=== PATIENT | male | born 1955 | race Caucasian/White ===

== ENCOUNTER 2022-07-14 10:28 | Day surgery (SDC) | payer MEDICAID ==
[2022-07-09 16:36] LABS: CLARITY,URINE CLEAR (Clear); COLOR,URINE YELLOW (Yellow); GLUCOSE, URINE NEGATIVE (Neg); KETONES,URINE 15 mg/dl (Neg); LEUKOCYTE ESTERASE ,URINE NEGATIVE (Neg); NITRITES, URINE NEGATIVE (Neg); OCCULT BLOOD,URINE NEGATIVE (Neg); PROTEIN,URINE NEGATIVE (Neg); UROBILINOGEN,URINE 0.2 E.U/dL (0.2-1.0)
[2022-07-09 16:39] LABS: UA COLLECTION TYPE CLN CATCH MIDSTREAM
[2022-07-09 16:43] LABS: BASOPHILS # (AUTO) 0.1 X10'3 (0-0.2); BASOPHILS % (AUTO) 0.6 % (0-1); EOSINOPHILS # (AUTO) 0.6 X10'3 (0-0.9); EOSINOPHILS % (AUTO) 4.3 % (0-6); LYMPHOCYTES # (AUTO) 1.7 X10'3 (1.1-4.8); LYMPHOCYTES % (AUTO) 12.6 % (21-51); MEAN CORPUSCULAR HEMOGLOBIN 27.9 PG (27.0-31.0); MEAN CORPUSCULAR HGB CONC 32.6 g/dL (33.0-36.5); MEAN CORPUSCULAR VOLUME 85.6 FL (78-98); MEAN PLATELET VOLUME 7.5 FL (7.4-10.4); MONOCYTES # (AUTO) 1.5 X10'3 (0-0.9); MONOCYTES % (AUTO) 11.5 % (2-12); NEUTROPHILS # (AUTO) 9.5 X10'3 (1.8-7.7); PRE OP HEMATOCRIT 39.5 % (42.0-52.0); PRE OP HEMOGLOBIN 12.9 g/dL (14.0-17.9); PRE OP PLATELET COUNT 581 X10'3 (140-440); RED BLOOD COUNT 4.62 X10'6 (4.70-6.10); RED CELL DISTRIBUTION WIDTH 17.6 % (11.5-14.5)
[2022-07-09 16:57] LABS: ALBUMIN 3.2 G/DL (3.4-5.0); ALBUMIN/GLOBULIN RATIO 0.7 (1.1-1.5); ALKALINE PHOSPHATASE 83 IU/L (46-116); BLOOD UREA NITROGEN 10 MG/DL (7-18); BUN/CREATININE RATIO 15.6 (5.4-32.0); CALCIUM 8.8 MG/DL (8.5-10.1); CHLORIDE 94 MMOL/L (99-107); CREATININE 0.64 MG/DL (0.60-1.10); PRE OP ALT 14 U/L (30-65); PRE OP ANION GAP 7 (8-16); PRE OP AST 17 U/L (10-37); PRE OP BILIRUB, TOTAL 0.3 MG/DL (0.0-1.0); PRE OP GLUCOSE 86 MG/DL (70-104); PRE OP POTASSIUM 3.7 MMOL/L (3.4-5.1); TOTAL CARBON DIOXIDE 26.9 MMOL/L (24-32); eGFR > 90 ML/MIN
[2022-07-09 17:02] LABS: PRE OP SODIUM 128 MMOL/L (135-145)
[2022-07-14] VITALS (21 sets, daily range): BP systolic 104–140; BP diastolic 55–100
[~2022-07-14] VITALS: Ht 170.2 cm; Wt 67.4 kg
[~2022-07-14 10:28] MED LIST: AMOX-318 PO; COLLAGEN PO; GABA-530 PO; MEAL REPLACEMENT PO; MIDO5TAB4 PO; MULT-1085 PO; PROT480P PO; [UNRECOGNIZED DRUG - OTHER] PO; [UNRECOGNIZED DRUG - OTHER] PO; ceFAZolin inj. 2,000 MG in dextrose 5%-water 100 ML IV ONE; famotidine 20mg tablet PO ONE; ringers solution, lacted 1,000 ML IV SCH
[2022-07-14] MEDS ORDERED: labetalol 20mg/4ml (5mg/ml) syringe IV PRN (11:25)
[2022-07-14] MEDS ORDERED: morphine 2 MG/ML inj. syringe IV PRN (11:25)
[2022-07-14] MEDS ORDERED: hydrALAZINE 20mg/ml inj. IV PRN (11:25)
[2022-07-14] MEDS ORDERED: morphine 4 MG/ML inj SYRINge IV PRN (11:25)
[2022-07-14] MEDS ORDERED: acetaminophen 1,000mg/100ml IV 100 ML IV PRN (11:25)
[2022-07-14] MEDS ORDERED: ringers solution, lacted 1,000 ML IV SCH (11:25)
[2022-07-14] MEDS ORDERED: meperidine/PF 25mg/ml syringe IV PRN ×3 (11:25)
[2022-07-14] MEDS ORDERED: proCHLORperazine 10 MG/2 ml inj IV PRN (11:25)
[2022-07-14] MEDS ORDERED: ondansetron/PF 4mg/2ml inj IV PRN (11:25)
[2022-07-14 11:49] LABS: PRE OP PROTIME 10.7 SECONDS (9.0-12.0)
[2022-07-14] MEDS ORDERED: BUPIVAcaine 0.5% inj/PF 30 ML ONE (13:46)
[2022-07-14] MEDS ORDERED: neostigmine methylsulfate 1 MG/ML 10ml vial ONE (14:01)
[2022-07-14] MEDS ORDERED: sevoflurane 250ml liquid IH ONE (14:01)
[2022-07-14] MEDS ORDERED: midazolam 1 mg/ML 2ml injection ONE (14:04)
[2022-07-14] MEDS ORDERED: fentaNYL /PF 50mcg/ml 5ml ampule ONE (14:04)
[2022-07-14] MEDS ORDERED: BUPIVAcaine 0.5% inj/PF 30 ml vial IJ ONE (14:51)
[2022-07-14] MEDS ORDERED: LIDOcaine 2% (20mg/ml) 5ml vial ONE (15:14)
[2022-07-14] MEDS ORDERED: dexamethasone sod phosphate 4mg/ml inj. ONE (15:14)
[2022-07-14] MEDS ORDERED: propofol inj 20 ML IV ONE (15:14)
[2022-07-14] MEDS ORDERED: rocuronium 10mg/ml inj IV ONE (15:14)
[2022-07-14] MEDS ORDERED: glycopyrrolate 0.2mg/ml inj ONE (15:14)
[2022-07-14] MEDS ORDERED: ondansetron/PF 4mg/2ml inj ONE (15:23)
--- NOTE | 2022-07-14 15:29 | NUR ---
Received from OR via [facility], accompanied by Anesthesiologist and report given by Anesthesiologist. PATIENT WAKING UP, DENIES PAIN, V/S WNL, PIV 20G Right Forearm, DERMABONDED LAPS SITES CLOSED CDI TO ABDOMEN. Addendum: 07/14/22 at 1617 by Carl Walls RN Amended: Links added.
--- NOTE | 2022-07-14 18:00 | NUR ---
PERFORMED BLADDER SCANNER AND 233 CC OF URINE NOTED. Addendum: 07/14/22 at 1907 by Carl Walls RN Amended: Links added.
--- NOTE | 2022-07-14 19:49 | NUR ---
ALL DISCHARGE CRITERIA HAS BEEN MET. VSS, PAIN AT A TOLERABLE LEVEL, VOIDING AND ABLE TO SAFELY AMBULATE AND TRANSFER SELF. IV TAKEN OUT WITHOUT ANY COMPLICATIONS. ALL DISCHARGE INSTRUCTIONS COVERED WITH PATIENT AND ALL QUESTIONS ANSWERED. PATIENT TAKEN OUT VIA WHEELCHAIR WITH ALL BELONGINGS TO PERSONAL VEHICLE WHERE FAMILY DROVE PATIENT HOME. Addendum: 07/14/22 at 1951 by Carl Walls RN Amended: Links added.
== END 2022-07-14 19:49 | disposition home or self-care (01) ==
LOC: PAS 10:28
PROVIDERS: ATTEND Surgery
DX: K40.90 Unilateral inguinal hernia, without obstruction or gangrene, not specified as recurrent (principal); R59.0 Localized enlarged lymph nodes; D17.6 Benign lipomatous neoplasm of spermatic cord; I10 Essential (primary) hypertension; D64.9 Anemia, unspecified; G62.9 Polyneuropathy, unspecified; F10.27 Alcohol dependence with alcohol-induced persisting dementia; J44.9 Chronic obstructive pulmonary disease, unspecified; F17.210 Nicotine dependence, cigarettes, uncomplicated; Z79.899 Other long term (current) drug therapy; Z98.890 Other specified postprocedural states; Z82.3 Family history of stroke; Z82.49 Family history of ischemic heart disease and other diseases of the circulatory system; Z83.3 Family history of diabetes mellitus; Z82.61 Family history of arthritis
CPT/HCPCS: 36415; 38570; 49650; 80053; 81003; 82948; 84295; 85025; 85610; 93005; C1781; J0690; J1100; J2175; J2250; J2270; J2405; J2704; J2710; J3010; J3490; J7030; J7060; J7120; S0020; S2900; Z7506; Z7508; Z7512; A4215; A4618

== ENCOUNTER 2022-09-08 10:09 | Day surgery (SDC) | payer MEDICARE, MEDICAID ==
[~2022-09-08] VITALS: Ht 170.2 cm; Wt 65.9 kg
[~2022-09-08 10:09] MED LIST changes: -[UNRECOGNIZED DRUG - OTHER] PO; -ceFAZolin inj. 2,000 MG in dextrose 5%-water 100 ML IV ONE; -famotidine 20mg tablet PO ONE; -ringers solution, lacted 1,000 ML IV SCH
[2022-09-08] MEDS ORDERED: fentaNYL/PF 50MCG/1 ML 2ML syringe ONE (10:21)
[2022-09-08] MEDS ORDERED: MIDAZolam 1 MG/ML 5ML VIAL ONE (10:21)
[2022-09-08] MEDS ORDERED: LIDOcaine Viscous 15ml cup ONE (10:22)
[2022-09-08] MEDS ORDERED: ALBU6.7H14 INH (10:35)
[2022-09-08] MEDS ORDERED: FLUT12AE4 IH (10:36)
[2022-09-08] MEDS ORDERED: [UNRECOGNIZED DRUG - OTHER] INH (10:37)
[2022-09-08] MEDS ORDERED: HYDR-3965 PO (10:37)
[2022-09-08] MEDS ORDERED: POTA-206 PO (10:38)
[2022-09-08] MEDS ORDERED: DOCU-148 PO (10:38)
[2022-09-08] MEDS ORDERED: FOLI1TAB27 PO (10:39)
[2022-09-08 10:40] VITALS: BP 129/71
[2022-09-08 11:35] VITALS: BP 114/69
[2022-09-08 11:45] VITALS: BP 113/70
[2022-09-08 11:55] VITALS: BP 109/67
[2022-09-08 12:05] VITALS: BP 113/70
== END 2022-09-08 12:15 | disposition home or self-care (01) ==
LOC: GI LAB 10:09
PROVIDERS: ATTEND Internal Medicine Gastroenterology
DX: K92.1 Melena (principal); K30 Functional dyspepsia; K29.50 Unspecified chronic gastritis without bleeding; K29.80 Duodenitis without bleeding; K44.9 Diaphragmatic hernia without obstruction or gangrene; I95.9 Hypotension, unspecified; J44.9 Chronic obstructive pulmonary disease, unspecified; Z87.891 Personal history of nicotine dependence; Z79.899 Other long term (current) drug therapy
CPT/HCPCS: 43239; J2250; J3010; J7030; Z7512; 88305; 99152; A4620

== ENCOUNTER 2024-03-01 10:18 | Emergency (ER) | payer MEDICARE, MEDICAID ==
[~2024-03-01] VITALS: Ht 175.3 cm; Wt 68.2 kg
[~2024-03-01 10:18] MED LIST changes: +ALBU6.7H14 INH; -AMOX-318 PO; +DOCU-148 PO; +FLUT12AE4 IH; +FOLI1TAB27 PO; +HYDR-3965 PO; -MEAL REPLACEMENT PO; -MIDO5TAB4 PO; +POTA-206 PO; +[UNRECOGNIZED DRUG - OTHER] INH
[2024-03-01] MEDS: LORazepam 1 MG tablet PO ONE (11:35)
[2024-03-01 11:54] VITALS: TEMP 97.5
[2024-03-01 11:59] LABS: BASOPHILS # (AUTO) 0.1 X10'3 (0-0.2); EOSINOPHILS # (AUTO) 0.3 X10'3 (0-0.9)
[2024-03-01 12:01] LABS: BASOPHILS % (AUTO) 0.5 % (0-1); EOSINOPHILS % (AUTO) 1.6 % (0-6); HEMATOCRIT 43.6 % (42.0-52.0); HEMOGLOBIN 14.2 g/dl (14.0-17.9); LYMPHOCYTES # (AUTO) 0.9 X10'3 (1.1-4.8); LYMPHOCYTES % (AUTO) 5.4 % (21-51); MEAN CORPUSCULAR HEMOGLOBIN 35.2 PG (27.0-31.0); MEAN CORPUSCULAR HGB CONC 32.5 g/dL (33.0-36.5); MEAN CORPUSCULAR VOLUME 108.3 FL (78-98); MEAN PLATELET VOLUME 8.1 FL (7.4-10.4); MONOCYTES # (AUTO) 1.3 X10'3 (0-0.9); MONOCYTES % (AUTO) 7.7 % (2-12); NEUTROPHILS # (AUTO) 14.7 X10'3 (1.8-7.7); NEUTROPHILS % (AUTO) 84.8 % (42-75); PLATELET COUNT 362 X10'3 (140-440); RED BLOOD COUNT 4.02 X10'6 (4.70-6.10); RED CELL DISTRIBUTION WIDTH 13.6 % (11.5-14.5); WHITE BLOOD COUNT 17.4 X10'3 (4.5-11.0)
[2024-03-01 12:26] LABS: ALANINE AMINOTRANSFERASE 38 U/L (12-78); ALBUMIN 3.6 G/DL (3.4-5.0); ALBUMIN/GLOBULIN RATIO 0.8 (1.1-1.5); ALKALINE PHOSPHATASE 87 IU/L (46-116); ANION GAP 10 (8-16); ASPARTATE AMINO TRANSFERASE 33 U/L (10-37); BILIRUBIN,TOTAL 0.5 MG/DL (0.1-1.0); BLOOD UREA NITROGEN 11 MG/DL (7-18); CALCIUM 8.8 MG/DL (8.5-10.1); CHLORIDE 106 MMOL/L (99-107); GLUCOSE 85 MG/DL (70-104); POTASSIUM 3.8 MMOL/L (3.5-5.1); SODIUM 140 MMOL/L (135-145); TOTAL CARBON DIOXIDE 24.2 MMOL/L (24-32)
[2024-03-01 12:32] LABS: CREATININE 0.04 MG/DL (0.60-1.10); eCRCL 1752 ML/MIN; eGFR > 90 ML/MIN
[2024-03-01] MEDS: diazepam 5mg tablet PO ONE (13:41)
[2024-03-01] MEDS: normal saline 1000ml 1,000 ML IV ONE (13:42)
[2024-03-01 15:11] VITALS: BP 128/67; PULSE 70; RESP 18; O2SAT 96
[2024-03-01] MEDS: ibuprofen tablet 400 MG TABLET PO ONE (15:14)
== END 2024-03-01 15:21 | disposition home or self-care (01) ==
LOC: ER 10:19
DX: F10.21 Alcohol dependence, in remission (principal); Z79.899 Other long term (current) drug therapy; Z79.51 Long term (current) use of inhaled steroids
CPT/HCPCS: 36415; 80053; 82948; 85025; 96360; 96361; 99284; J7030

== ENCOUNTER 2024-11-30 10:36 | Outpatient (CLI) | payer MEDICARE, MEDICAID ==
--- NOTE | 2024-11-30 13:25 | RADIOLOGY REPORT ---
Exam: CT CT ABDOMEN History: ABDOMINAL HERNIA WITHOUT OBSTRUCTION OR GANGRENE;REMEDIOS SARAH Comparison Study: None Technique: Multidetector spiral CT of the abdomen was performed from lung bases to iliac crest. Imagi ng was performed without IV contrast. Axial, coronal and sagittal multiplanar reformats were obtained from the axial data set by the technologist. Radiation Dose : CT Dose: CTDI volume is 10.7 mGy. Dose-length product is 275 mGy*cm Findings: Evaluation of solid organs is limited due to lack of intravenous contrast use. Lung Bases: No acute or significant lung base finding. Normal heart size. No pleural or pericardial effusion. Liver: The liver is normal in size. No focal lesions. Gallbladder and Biliary Tree: Unremarkable Spleen: Unremarkable Pancreas: The pancreas is grossly normal in appearance. Adrenal Glands: Unremarkable Kidneys: Kidneys are grossly normal without calculi or hydronephrosis. Visualized Bowel: The stomach is grossly normal in appearance. Small bowel and colon are normal in ca liber and distribution. Ascites: Absent Lymphadenopathy: No mesenteric, retroperitoneal or periportal lymphadenopathy. Abdominal Wall and Mesentery: Large bowel containing supraumbilical midline hernia centered at approx imately the L2-L3 vertebral body level. Hernia defect measures approximately 10.0 x 6.3 cm. Vasculature: Vascular calcifications of the aorta. Musculoskeletal: No aggressive focal bony lesions, acute fractures or dislocation. IMPRESSION: Large bowel containing supraumbilical midline hernia centered at approximately the L2-L3 vertebral [place] level. Hernia defect measures approximately 10.0 x 6.3 cm.
== END 2024-11-30 23:59 | disposition home or self-care (01) ==
LOC: RAD 10:36
PROVIDERS: ATTEND Nurse Practitioner
DX: K43.9 Ventral hernia without obstruction or gangrene (principal); K46.9 Unspecified abdominal hernia without obstruction or gangrene; I70.0 Atherosclerosis of aorta
CPT/HCPCS: 74150